=== PATIENT | male | born 1965 | race Caucasian/White ===

== ENCOUNTER 2022-07-06 09:17 | Outpatient (CLI) | payer OTHER | END 2022-07-06 09:18 | disposition home or self-care (01) | LOC: CSHRAD 09:17 | PROVIDERS: ATTEND Student in an Organized Health Care Education/Training Program | DX: M54.50 Low back pain, unspecified (principal); M25.572 Pain in left ankle and joints of left foot; M47.816 Spondylosis without myelopathy or radiculopathy, lumbar region; M41.86 Other forms of scoliosis, lumbar region; M43.17 Spondylolisthesis, lumbosacral region | CPT/HCPCS: 72100 ==